=== PATIENT | female | born 1975 | race Caucasian/White ===

== ENCOUNTER 2019-02-09 19:01 | Emergency (ER) | payer SELFPAY ==
[2019-02-09] MEDS ORDERED: Ketorolac 60 MG/2 ML SDV IM ONE (19:15)
--- NOTE | 2019-02-09 20:04 | EDM.PDOC ---
ED HPI GENERAL MEDICAL PROBLEM - General Chief Complaint: Headache Stated Complaint: MIGRAINE Time Seen by Provider: 02/09/19 20:01 Source of Information: Reports: Patient History Limitations: Reports: No Limitations - History of Present Illness INITIAL COMMENTS - FREE TEXT/NARRATIVE: Maria Del Carmen is a 43-year-old female complaining of headache. She describes a global headache associated nausea photosensitivity described as migraine in type. Started today about was ago after she started walking from the [employer] to [place] by foot. She made about 2 miles and the headache started hence they called to the EMS. She does have a history of migraine headaches. - Related Data Allergies Allergy/AdvReac Type Severity Reaction Status Date / Time sumatriptan [From Imitrex] Allergy Hallucinati Verified 02/09/19 19:11 ons Home Meds: Home Meds Gabapentin [Neurontin] 400 mg PO ASDIRECTED PRN 02/09/19 [History] ED ROS GENERAL - Review of Systems Review Of Systems: ROS reveals no pertinent complaints other than HPI. - Physical Exam Exam: See Below Exam Limited By: No Limitations General Appearance: Alert, Lethargic Ears: Normal External Exam Nose: Normal Inspection Throat/Mouth: Normal Inspection Head Exam: Atraumatic Neck: Normal Inspection Respiratory/Chest: No Respiratory Distress Course - Orders/Labs/Meds Labs: Laboratory Tests 02/09/19 02/09/19 Range/Units 19:25 19:25 WBC 7.1 (4.5-12.0) X10-3/uL RBC 4.56 (3.23-5.20) x10(6)uL Hgb 13.8 (11.5-15.5) g/dL Hct 40.1 (30.0-51.3) % MCV 88.1 (80-96) fL MCH 30.2 (27.7-33.6) pg MCHC 34.3 (32.2-35.4) g/dL RDW 12.5 (11.5-15.5) % Plt Count 244 (125-369) X10(3)uL MPV 8.7 (7.4-10.4) fL Neut % (Auto) 57.2 (46-82) % Lymph % (Auto) 31.3 (13-37) % Dare % (Auto) 7.0 (4-12) % Eos % (Auto) 4 (1.0-5.0) % Baso % (Auto) 1 (0-2) % Neut # (Auto) 4.1 (1.6-8.3) # Lymph # (Auto) 2.2 (0.6-5.0) # Dare # (Auto) 0.5 (0.0-1.3) # Eos # (Auto) 0.3 (0.0-0.8) # Baso # (Auto) 0.0 (0.0-0.2) # Sodium 141 (135-145) mmol/L Potassium 4.1 (3.5-5.3) mmol/L Chloride 105 (100-110) mmol/L Carbon Dioxide 27 (21-32) mmol/L BUN 16 (7-18) mg/dL Creatinine 1.0 (0.55-1.02) mg/dL Est Cr Clr Drug Dosing TNP Estimated GFR (MDRD) > 60 (>60) BUN/Creatinine Ratio 16.0 (9-20) Glucose 96 (80-116) mg/dL Calcium 9.1 (8.6-10.2) mg/dL Meds: Medications Discontinued Medications Generic Name Dose Route Start Last Admin Trade Name Freq PRN Reason Stop Dose Admin Ketorolac Tromethamine 60 mg 02/09/19 19:15 02/09/19 19:18 Toradol IM 02/09/19 19:16 60 mg ONETIME ONE Administration Departure - Departure Time of Disposition: 20:03 Disposition: Home, Self-Care 01 Condition: Good Clinical Impression: Migraine, Heat exhaustion - Discharge Information Referrals: PCP,None [Primary Care Provider] - - Problem List & Annotations (1) Heat exhaustion SNOMED Code(s): 54284478 Code(s): T67.5XXA - HEAT EXHAUSTION, UNSPECIFIED, INITIAL ENCOUNTER Status : Acute Current Visit: Yes Qualifiers: Encounter type: initial encounter Qualified Code(s): T67.5XXA - Heat exhaustion, unspecified, initial encounter (2) Migraine SNOMED Code(s): 31373647 Code(s): G43.909 - MIGRAINE, UNSP, NOT INTRACTABLE, WITHOUT STATUS MIGRAINOSUS Status: Acute Current Visit: Yes - Problem List Review Problem List Initiated/Reviewed/Updated: Yes - Assessment/Plan Plan: Headache and nausea improved dramatically after Ketoralac injection. Labs were normal. I discharged her home to rest,drink fluids,return prn
== END 2019-02-09 20:46 | disposition home or self-care (01) ==
LOC: FB.ED 19:01
DX: T67.5XXA Heat exhaustion, unspecified, initial encounter (principal); G43.909 Migraine, unspecified, not intractable, without status migrainosus; Z88.8 Allergy status to other drugs, medicaments and biological substances
CPT/HCPCS: 36415; 80048; 85025; 96372; 99283; J1885